=== PATIENT | female | born 1990 | race Caucasian/White ===

== ENCOUNTER 2019-12-24 18:33 | Inpatient (IN) | payer BC ==
[~2019-12-24] VITALS: Ht 170.2 cm; Wt 98.0 kg
[2019-12-24] MEDS ORDERED: OXYTOCIN 30U/ 0.9% NaCL 500ML 500 ML IV PRN (19:38)
[2019-12-24] MEDS ORDERED: OXYTOCIN 30U/ 0.9% NaCL 500ML 500 ML IV ONE (19:38)
[2019-12-24] MEDS ORDERED: OXYTOCIN 30U/ 0.9% NaCL 500ML 500 ML ONE (19:48)
[2019-12-24] MEDS ORDERED: LIDOCAINE 1%, 20ML ONE (19:49)
[2019-12-24] MEDS ORDERED: NEWBORN KIT ONE (19:49)
[2019-12-24] MEDS ORDERED: MISOPROSTOL 200 MCG TABLET ONE (19:50)
[2019-12-24 20:00] VITALS: BP 134/87
[2019-12-24] MEDS ORDERED: SODIUM CITRATE/CITRIC ACID 30 ML UDC PO PRN (20:00)
[2019-12-24] MEDS ORDERED: ALUMINUM/MAG/SIMETHICONE 30 ML UDC PO PRN (20:00)
[2019-12-24] MEDS ORDERED: ONDANSETRON 2MG/ML, 2ML IVPush PRN (20:00)
[2019-12-24] MEDS ORDERED: TERBUTALINE 1 MG/ML, 1ML SQ PRN (20:00)
[2019-12-24] MEDS ORDERED: PENICILLIN GK 5,000,000 UNITS in DEXTROSE 5% 100 ML IVPB ONE (20:00)
[2019-12-24] MEDS ORDERED: FENTANYL PF 100 MCG/2ML IV PRN (20:00)
[2019-12-24] MEDS ORDERED: METOCLOPRAMIDE 5 MG/ML, 2ML IVPush PRN (20:00)
[2019-12-24] MEDS ORDERED: CALCIUM CARBONATE 500 MG TAB.CHEW PO PRN (20:00)
[2019-12-24] MEDS ORDERED: FENTANYL PF 100 MCG/2ML IVPush PRN (20:00)
[2019-12-24] MEDS ORDERED: TERBUTALINE 1 MG/ML, 1ML IVPush PRN (20:00)
[2019-12-24 20:15] LABS: BASOPHILS # (AUTO) 0.03 x10^3/uL (0-0.1); BASOPHILS % (AUTO) 0 % (0-1); EOSINOPHILS # (AUTO) 0.12 x10^3/uL (0-0.4); EOSINOPHILS % (AUTO) 1 % (1-7); LYMPHOCYTES # (AUTO) 1.28 x10^3/uL (1-3.4); LYMPHOCYTES % (AUTO) 12 % (22-44); MD NO; MEAN CORPUSCULAR HEMOGLOBIN 32.1 pg (27.0-34.8); MEAN CORPUSCULAR HGB CONC 33.2 g/dL (32.4-35.8); MEAN CORPUSCULAR VOLUME 96.6 fL (80-100); MEAN PLATELET VOLUME 8.4 fL (7.4-10.4); MONOCYTES # (AUTO) 1.01 x10^3/uL (0.2-0.8); MONOCYTES % (AUTO) 9 % (2-9); NEUTROPHILS # (AUTO) 8.54 x10^3/uL (1.8-6.8); NEUTROPHILS % (AUTO) 78 % (42-75); PLATELET COUNT 323 x10^3/uL (130-400)
[2019-12-24 20:25] LABS: ALANINE AMINOTRANSFERASE 19 U/L (12-78); ALBUMIN 2.7 g/dL (3.4-5.0); ANION GAP 9 mmol/L (5-15); BILIRUBIN, DIRECT < 0.1 mg/dL (0.1-0.2); CALCIUM 8.5 mg/dL (8.5-10.1); CHLORIDE 110 mmol/L (98-107); CREATININE 0.57 mg/dL (0.55-1.02)
[2019-12-24 20:27] LABS: ALKALINE PHOSPHATASE 125 U/L (45-117); BILIRUBIN,TOTAL 0.2 mg/dL (0.2-1.0); TOTAL PROTEIN 6.8 g/dL (6.4-8.2)
[2019-12-24] MEDS ORDERED: BETAMETHASONE 6 MG/ML, 5ML IM ONE (20:38)
[2019-12-24] MEDS ORDERED: PNV1TABL97 PO (20:47)
[2019-12-24] MEDS ORDERED: PREN1COM3 PO (20:49)
[2019-12-24] MEDS ORDERED: BETAMETHASONE 6 MG/ML, 5ML IM SCH (21:00)
[2019-12-24] MEDS ORDERED: FENTANYL PF 100 MCG/2ML ONE (23:52)
[2019-12-24] MEDS: PENICILLIN GK 2,500,000 UNITS in DEXTROSE 5% 100 ML IVPB SCH (23:55)
[2019-12-25] MEDS ORDERED: FENTANYL/BUPIV./NS/PF 0 ML EPIDCONT ONE (00:34)
[2019-12-25] MEDS ORDERED: ONDANSETRON 2MG/ML, 2ML ONE (00:34)
[2019-12-25] MEDS ORDERED: BUPIVACAINE 0.25% ONE (00:41)
[2019-12-25] MEDS ORDERED: FENTANYL PF 100 MCG/2ML ONE (00:41)
[2019-12-25] MEDS ORDERED: FENTANYL/BUPIV./NS/PF 250 ML EPIDCONT ONE (00:41)
[2019-12-25] MEDS ORDERED: LACTATED RINGERS 1,000 ML IV SCH (01:16)
[2019-12-25] MEDS ORDERED: FENTANYL/BUPIV./NS/PF 250 ML EPIDCONT SCH (01:16)
[2019-12-25] MEDS ORDERED: ONDANSETRON 2MG/ML, 2ML IVPush PRN (01:30)
[2019-12-25] MEDS ORDERED: EPHEDRINE 50 MG/ML, 1ML IVPush PRN (01:30)
[2019-12-25] MEDS ORDERED: LACTATED RINGERS 1,000 ML IVBOLUS PRN (01:30)
[2019-12-25 01:54] LABS: MICROSCOPIC NOT IND
[2019-12-25 02:16] LABS: CREATININE,URINE RANDOM 85.2 mg/dL
[2019-12-25] MEDS: PENICILLIN GK 2,500,000 UNITS in DEXTROSE 5% 100 ML IVPB SCH (04:00)
[2019-12-25] MEDS ORDERED: OXYTOCIN 30U/ 0.9% NaCL 500ML 500 ML IV SCH ×2 (04:51)
[2019-12-25] MEDS ORDERED: SIMETHICONE 80 MG CHEW TAB PO PRN (05:00)
[2019-12-25] MEDS ORDERED: MISOPROSTOL 200 MCG TABLET PR PRN (05:00)
[2019-12-25] MEDS ORDERED: ONDANSETRON 2MG/ML, 2ML IV PRN (05:00)
[2019-12-25] MEDS ORDERED: HYDROcodone/APAP 5/325 TABLET PO PRN ×2 (05:00)
[2019-12-25] MEDS ORDERED: ACETAMINOPHEN 325 MG TABLET PO PRN ×2 (05:00)
[2019-12-25] MEDS ORDERED: CALCIUM CARBONATE 500 MG TAB.CHEW PO PRN (05:00)
[2019-12-25] MEDS ORDERED: BISACODYL 10 MG SUPP PR PRN (05:00)
[2019-12-25] MEDS ORDERED: IBUPROFEN 600 MG TABLET PO PRN (05:00)
[2019-12-25] MEDS ORDERED: OXYTOCIN 30U/ 0.9% NaCL 500ML 500 ML ONE (05:35)
[2019-12-25 08:15] VITALS: BP 142/86
[2019-12-25] MEDS: PRENATAL VIT/IRON/FA 1 EACH TABLET PO SCH (09:34)
[2019-12-25] MEDS: DOCUSATE 100 MG CAPSULE PO PRN (09:34)
[2019-12-25 12:00] VITALS: BP 144/84
[2019-12-25 13:02] LABS: MEAN CORPUSCULAR HEMOGLOBIN 32.5 pg (27.0-34.8); MEAN CORPUSCULAR VOLUME 95.7 fL (80-100); MEAN PLATELET VOLUME 8.4 fL (7.4-10.4); PLATELET COUNT 296 x10^3/uL (130-400); RED BLOOD COUNT 4.15 x10^6/uL (3.82-5.3); RED CELL DISTRIBUTION WIDTH 13.2 % (9.6-15.2)
[2019-12-25 13:25] LABS: BASOPHILS % (AUTO) 0 % (0-1); EOSINOPHILS % (AUTO) 0 % (1-7); LYMPHOCYTES # (AUTO) 1.03 x10^3/uL (1-3.4); LYMPHOCYTES % (AUTO) 5 % (22-44); MD SCAN; MONOCYTES # (AUTO) 0.74 x10^3/uL (0.2-0.8); MONOCYTES % (AUTO) 3 % (2-9); NEUTROPHILS # (AUTO) 20.66 x10^3/uL (1.8-6.8); NEUTROPHILS % (AUTO) 92 % (42-75)
[2019-12-25 16:00] VITALS: BP 141/88
[2019-12-25 19:20] VITALS: BP 132/88
[2019-12-26 00:03] VITALS: BP 140/82
[2019-12-26 03:48] VITALS: BP 134/82
[2019-12-26 07:45] VITALS: BP 122/80
[2019-12-26] MEDS: PRENATAL VIT/IRON/FA 1 EACH TABLET PO SCH (08:45)
[2019-12-26] MEDS: DOCUSATE 100 MG CAPSULE PO PRN (08:45)
[2019-12-26 19:40] VITALS: BP 143/86
[2019-12-27 01:46] VITALS: BP 146/97
[2019-12-27 02:30] VITALS: BP 118/76
[2019-12-27 07:57] VITALS: BP 145/90
[2019-12-27] MEDS ORDERED: IBUP-1222 PO (08:05)
[2019-12-27] MEDS: DOCUSATE 100 MG CAPSULE PO PRN (09:16)
== END 2019-12-27 16:10 | disposition home or self-care (01) | DRG 807 ==
LOC: LDOP 18:33 → LDIP 19:39 → 2NW 12-25 08:52
PROVIDERS: ADMIT Obstetrics & Gynecology; ATTEND Obstetrics & Gynecology
PROC: 10E0XZZ Delivery of Products of Conception, External Approach (ICD-10-PCS; principal; 2019-12-25)
DX: O42.013 Preterm premature rupture of membranes, onset of labor within 24 hours of rupture, third trimester (principal); Z37.0 Single live birth; O14.04 Mild to moderate pre-eclampsia, complicating childbirth; O24.92 Unspecified diabetes mellitus in childbirth; Z3A.36 36 weeks gestation of pregnancy; Z87.891 Personal history of nicotine dependence
CPT/HCPCS: 36415; 80053; 81003; 82248; 82570; 84156; 84550; 85025; 86592; 86850; 86900; G0378; J0702; J2405; J2540; J3010; J2590